=== PATIENT | female | born 1960 | race Caucasian/White ===

== ENCOUNTER → 2020-09-13 | Outpatient (CLI) | payer OTHER ==
[~2020-09-13] MED LIST: ACET500T68 PO; ALBU2.5V8 IH; BISA10SU55 RC; CELE200C PO; CYCL10TA2 PO; DIPH25TA24 PO; LEVO50TA5 PO; LISI-334 PO; MONT10TA49 PO; NYST15PO9 TP; POLY17PO29 PO
== END ==
LOC: LAB 10:34
PROVIDERS: ATTEND Internal Medicine Gastroenterology
DX: Z01.812 Encounter for preprocedural laboratory examination (principal); Z12.11 Encounter for screening for malignant neoplasm of colon; Z20.828 Contact with and (suspected) exposure to other viral communicable diseases
CPT/HCPCS: U0003

== ENCOUNTER → 2020-09-19 | Day surgery (SDC) | payer OTHER ==
[~2020-09-19] MED LIST changes: +IV RINGERS,LACTATED 1000ML 1,000 ML IV ONE; +LIDOCAINE 2% PF 5 ML VIAL. ONE; +PROPOFOL 10 MG/ML (20ML) VIAL. IV ONE
[2020-09-19 09:34] VITALS: BP 104/64
--- NOTE | 2020-09-19 13:39 | CONS ---
DATE OF CONSULTATION: 09/19/2020 REFERRING PHYSICIAN: Dr. Av Rossi. HISTORY OF PRESENT ILLNESS: A 60-year-old female with a past medical history that is significant for asthma, osteoarthritis, hypothyroidism and hypertension, is seen for screening colon exam. Bowel habits are regular without melena and/or hematochezia. She has had intermittent constipation with straining. Weight and appetite are stable. There is no family history of colon cancer. PAST MEDICAL HISTORY: Osteoarthritis, hypothyroidism and hypertension. ALLERGIES: LORATADINE and PREDNISONE. MEDICATIONS: Include acetaminophen, albuterol, Dulcolax, Celebrex, cyclobenzaprine, diphenhydramine, levothyroxine, lisinopril montelukast, nystatin, polyethylene glycol. SOCIAL HISTORY: She is a nonsmoker. She is a former social drinker. FAMILY HISTORY: Significant for diabetes with her father, hypertension with father and CVA with both parents. PAST SURGICAL HISTORY: Noncontributory. REVIEW OF SYSTEMS: Per records. PHYSICAL EXAMINATION: GENERAL: Reveals a well-nourished, well-developed female. VITAL SIGNS: Temperature is 98, pulse 75, respiratory rate 22, pulse oximetry 97%. LUNGS: Clear. CARDIOVASCULAR: Reveals an S1, S2 without S3, S4 or appreciable murmur. ABDOMEN: Reveals a soft abdomen, normal bowel sounds, without appreciable hepatosplenomegaly. EXTREMITIES: No cyanosis, clubbing or edema. IMPRESSION: Colorectal screening is warranted at this time. Risks and benefits of procedure including risk of hemorrhage and perforation ____ discussed. The patient is willing to proceed. KAREL ADKINS MD DR: RYAN/eladia JOB#: [id number] / [id number] ecc ____, ____
--- NOTE | 2020-09-24 16:07 | PATHOLOGY ---
[facility] Accession Number: [id number] . 01 Material submitted: . gastrointestinal site - SIGMOID POLYP . 01 Clinical history: . SCREENING COLONOSCOPY . 02 Diagnosis: Colon biopsy, sigmoid polyp: - Tubular adenoma. LB 09/24/2020 1039 Local . 02 Comment: There is no high grade dysplasia or evidence of malignancy. (JPM/db; 09/24/2020) . 02 Electronically signed: . Connor Moise MD, Pathologist NPI- [id number] . 01 Gross description: . Received in formalin labeled "Jaffe, Jane, sigmoid polyp" is a fragment of smith-brown soft tissue measuring 0.7 x 0.4 x 0.2 cm. The specimen is submitted entirely in A1. ([facility] [place]; 09/20/2020) [facility] 09/20/2020 1307 Local . 02 Pathologist provided ICD-10: D12.5 . 02 CPT . 268523 Specimen Comment: A courtesy copy of this report has been sent to [phone] Specimen Comment: Report sent to Performed at: 01 [facility] [address] [facility] [address], [place] [id number] MD Ranjith Blair MD Phone: [phone] Performed at: 02 [facility] [address] [place], [place] [id number] MD Connor Moise MD Phone: [phone]
== END | disposition home or self-care (01) ==
LOC: ENDOS 07:59
PROVIDERS: ATTEND Internal Medicine Gastroenterology
DX: K59.00 Constipation, unspecified (principal); D12.5 Benign neoplasm of sigmoid colon; K64.0 First degree hemorrhoids; K63.89 Other specified diseases of intestine; M19.90 Unspecified osteoarthritis, unspecified site; I10 Essential (primary) hypertension; J45.909 Unspecified asthma, uncomplicated; E03.9 Hypothyroidism, unspecified; Z79.899 Other long term (current) drug therapy; Z82.49 Family history of ischemic heart disease and other diseases of the circulatory system; Z83.3 Family history of diabetes mellitus; Z88.8 Allergy status to other drugs, medicaments and biological substances; Z82.3 Family history of stroke; Z98.890 Other specified postprocedural states
CPT/HCPCS: 45385; J2704; 45380